=== PATIENT | male | born 1985 | race Two or more races ===

== ENCOUNTER 2020-07-26 11:06 | Emergency (ER) | payer SELFPAY ==
[~2020-07-26] VITALS: Ht 167.6 cm; Wt 81.6 kg
[2020-07-26 11:34] VITALS: BP 146/96
== END 2020-07-26 13:24 | disposition home or self-care (01) ==
LOC: ER 11:06
DX: S80.12XA Contusion of left lower leg, initial encounter (principal); S92.102A Unspecified fracture of left talus, initial encounter for closed fracture; F17.210 Nicotine dependence, cigarettes, uncomplicated; Y93.21 Activity, ice skating; Y92.89 Other specified places as the place of occurrence of the external cause; Y99.8 Other external cause status
CPT/HCPCS: 29515; 73590; 73610